=== PATIENT | female | born 1980 | race Caucasian/White ===

== ENCOUNTER 2017-05-16 09:48 | Emergency (ER) | payer MEDICAID ==
[2017-05-16] MEDS ORDERED: Sodium Chloride 0.9% 1,000 ML IV ONE (10:20)
--- NOTE | 2017-05-16 10:24 | C.PDOC ---
History Of Present Illness 37F c/o urinary frequency/hesitancy and right low back pain for the last 3 weeks. also notes productive cough. fever for 2 days tues-wed this week but none since. smokes marijuana. takes xanax/prozac denies other pmh. Time Seen by Provider: 05/16/17 09:57 Chief Complaint (Nursing): Female Genitourinary Past Medical History Vital Signs: Last Vital Signs Temp 98.5 F 05/16/17 10:03 Pulse 98 H 05/16/17 10:03 Resp 18 05/16/17 10:03 BP 115/78 05/16/17 10:03 Pulse Ox 99 05/16/17 11:51 - Medical History PMH: Anxiety, Depression, Hypercholesterolemia (diet/exercise controlled) Family History: States: Other Other Family History: [place] - Social History Hx Alcohol Use: No Hx Substance Use: No - Immunization History Hx Tetanus Toxoid Vaccination: No Hx Influenza Vaccination: No Hx Pneumococcal Vaccination: No Review Of Systems Constitutional: Positive for: Fever, Chills, Malaise Cardiovascular: Negative for: Chest Pain Respiratory: Positive for: Cough. Negative for: Shortness of Breath Gastrointestinal: Positive for: Abdominal Pain. Negative for: Nausea, Vomiting Genitourinary: Positive for: Frequency. Negative for: Dysuria Physical Exam - Physical Exam Appears: Well, Non-toxic, No Acute Distress Skin: Warm, Dry Eye(s): bilateral: PERRL Oral Mucosa: Moist Tongue: No Swelling Lips: No Swelling Neck: Supple Cardiovascular: Rhythm Regular Respiratory: No Decreased Breath Sounds, No Accessory Muscle Use, No Rales, No Rhonchi, No Stridor, No Wheezing Gastrointestinal/Abdominal: Soft, No Distention, No Guarding, No Rebound Neurological/Psych: Oriented x3 ED Course And Treatment - Laboratory Results Result Diagrams: 05/16/17 10:33 05/16/17 10:33 O2 Sat by Pulse Oximetry: 99 Medical Decision Making Medical Decision Makinam disc results w pt who is resting quietly in no distress, reports improvement in sx. she v/u and agrees w plan. PROCEDURE: CT scan abdomen and pelvis dated 05/16/2017. HISTORY: Flank pain. Rule out ureteral stone COMPARISON: None. TECHNIQUE: Contiguous axial images of the abdomen and pelvis. Oral contrast was administered. No IV contrast given. Coronal and Sagittal reformats generated. Radiation dose: Total exam DLP = 274.94 mGy-cm. This CT exam was performed using one or more of the following dose reduction techniques: Automated exposure control, adjustment of the mA and/or kV according to patient size, and/or use of iterative reconstruction technique. FINDINGS: LOWER THORAX: Lung bases clear. No infiltrate effusion or basilar pneumothorax. Heart size within range of normal. No significant pericardial effusion. LIVER: Liver appears mildly enlarged measuring just over 18 cm in CC dimension. No obvious hepatic mass collection or calcification seen on this noncontrast exam. GALLBLADDER AND BILE DUCTS: Gallbladder is physiologically distended. No evidence of intraluminal gallbladder calculi. PANCREAS: Pancreas is of not well delineated due to the lack of oral and intravenous contrast material as well as a paucity of intraperitoneal and retroperitoneal fat. No gross pancreatic mass seen. SPLEEN: Spleen exhibits normal size. No evidence of large splenic mass collection or calcification. ADRENALS: No adrenal lesions. KIDNEYS AND URETERS: The kidneys exhibit relatively symmetric size. There is mild right-sided hydronephrosis. The mid and distal ureter is poorly delineated again due to the aforementioned limitations. There are 2 tiny calcifications seen in the right aspect of the pelvis are neither of which is felt to be located within the distal ureter. Collective findings may represent a recently passed renal calculus. Clinical correlation with urinalysis. BLADDER: Urinary bladder is incompletely distended which may account for slight thick- walled appearance. Possibility of a cystitis must also be considered. REPRODUCTIVE: Prominent appearing right ovary. APPENDIX: Normal-appearing appendix of best seen on coronal image number [id number]. BOWEL: Evaluation of the bowel is limited due to the lack of oral contrast material. Stomach is distended with large amount of liquid and small amount of air. Visualized loops small bowel exhibit normal contour and caliber. No evidence of acute mechanical small bowel obstruction. Stool and air seen throughout the large bowel. No definitive evidence of abnormal mural wall thickening. PERITONEUM: Unremarkable. No fluid collection. No free air. LYMPH NODES: No significant abdominal adenopathy VASCULATURE: Unremarkable. No aortic aneurysm. BONES: Moderate levoscoliosis centered at the at L3-L4 level. No acute compression fractures no retropulsed fragments. OTHER FINDINGS: None. IMPRESSION: There is mild proximal right-sided hydronephrosis of. No definitive evidence of a renal or ureteral calculi at despite 2 small calcifications within the right pelvis that are not felt to be located within the distal right ureter. Rule out recently passed calculus. Mild wall thickening of the urinary bladder likely in part due to incomplete distention however correlation with urinalysis is suggested to exclude possibility of a cystitis. Mild hepatomegaly. Moderate levoscoliosis as above. Disposition - Disposition Referrals: [facility] [Outside] Disposition: HOME/ ROUTINE Disposition Time: 11:50 Condition: IMPROVED Additional Instructions: Please follow up with your doctor in 1 week. Return to the ER for any worsening symptoms or if you have not improved in 3 days. Prescriptions: Cephalexin [cephalexin] 500 mg PO BID #20 cap Instructions: Urinary Tract Infection in Women (ED) Forms: [facility] ([place]), General Discharge Instructions - Clinical Impression Clinical Impression: UTI (urinary tract infection)
[2017-05-16] MEDS ORDERED: Sodium Chloride 0.9% 1,000 ML ONE (10:31)
[2017-05-16 10:35] VITALS: RESP 18; TEMP 98.5; O2SAT 99
[2017-05-16 10:49] LABS: ALKALINE PHOSPHATASE 72 U/L (38-126); ALT/SGPT 35 U/L (9-52); AST/SGOT 24 U/L (14-36); BILIRUBIN,TOTAL 0.8 mg/dL (0.2-1.3); BLOOD UREA NITROGEN 12 mg/dL (7-17); CALCIUM 8.8 mg/dl (8.6-10.4); CARBON DIOXIDE 28 mmol/L (22-30); CHLORIDE 97 mmol/L (98-107); GFR AFRICAN-AMERICAN > 60; GLUCOSE,RANDOM 125 mg/dL (65-105); POTASSIUM 3.9 mmol/L (3.6-5.2); RBC URINE 85 /hpf (0-3); SODIUM 136 mmol/L (132-148); TOTAL PROTEIN 8.7 g/dL (6.3-8.3); URINE BACTERIA RARE (<OCC); URINE BILIRUBIN NEGATIVE (NEGATIVE); URINE BLOOD 2+ (NEGATIVE); URINE COLOR Yellow (YELLOW); URINE GLUCOSE (UA) NORMAL (Normal); URINE KETONE NEGATIVE (NEGATIVE); URINE LEUKOCYTE ESTERASE 1+ Leu/uL (Negative); URINE PROTEIN 2+ mg/dL (NEGATIVE); URINE UROBILINOGEN NORMAL mg/dL (0.2-1.0); WBC URINE 60 /hpf (0-5)
[2017-05-16 10:50] LABS: ALB/GLOB RATIO 1.1 (1.0-2.1)
[2017-05-16 10:53] LABS: BASO # 0.1 K/uL (0.0-0.2); BASO % 1.7 % (0.0-2.0); EOS # 0.1 K/uL (0.0-0.7); EOS % 0.6 % (0.0-4.0); HEMATOCRIT 40.7 % (34.0-47.0); LYMPH # 1.7 K/uL (1.0-4.3); LYMPH % 21.1 % (20.0-40.0); MEAN CELL VOLUME 97.7 fL (81.0-99.0); MEAN CORPUSCULAR HEMOGLOBIN 32.3 pg (27.0-31.0); MEAN CORPUSCULAR HGB CONC 33.1 g/dL (33.0-37.0); MEAN PLATELET VOLUME 8.4 fL (7.2-11.7); MONO # 0.8 K/uL (0.0-0.8); MONO % 10.5 % (0.0-10.0); RED CELL DISTRIBUTION WIDTH 12.4 % (11.5-14.5); WHITE BLOOD COUNT 7.9 K/uL (4.8-10.8)
[2017-05-16] MEDS ORDERED: cefTRIAXone IV 1 gm in Dextros 50 ML IVPB ONE (11:08)
--- NOTE | 2017-05-16 11:42 | CT ---
PROCEDURE: CT scan abdomen and pelvis dated 05/16/2017. HISTORY: Flank pain. Rule out ureteral stone COMPARISON: None. TECHNIQUE: Contiguous axial images of the abdomen and pelvis. Oral contrast was administered. No IV contrast given. Coronal and Sagittal reformats generated. Radiation dose: Total exam DLP = 274.94 mGy-cm. This CT exam was performed using one or more of the following dose reduction techniques: Automated exposure control, adjustment of the mA and/or kV according to patient size, and/or use of iterative reconstruction technique. FINDINGS: LOWER THORAX: Lung bases clear. No infiltrate effusion or basilar pneumothorax. Heart size within range of normal. No significant pericardial effusion. LIVER: Liver appears mildly enlarged measuring just over 18 cm in CC dimension. No obvious hepatic mass collection or calcification seen on this noncontrast exam. GALLBLADDER AND BILE DUCTS: Gallbladder is physiologically distended. No evidence of intraluminal gallbladder calculi. PANCREAS: Pancreas is of not well delineated due to the lack of oral and intravenous contrast material as well as a paucity of intraperitoneal and retroperitoneal fat. No gross pancreatic mass seen. SPLEEN: Spleen exhibits normal size. No evidence of large splenic mass collection or calcification. ADRENALS: No adrenal lesions. KIDNEYS AND URETERS: The kidneys exhibit relatively symmetric size. There is mild right-sided hydronephrosis. The mid and distal ureter is poorly delineated again due to the aforementioned limitations. There are 2 tiny calcifications seen in the right aspect of the pelvis are neither of which is felt to be located within the distal ureter. Collective findings may represent a recently passed renal calculus. Clinical correlation with urinalysis. BLADDER: Urinary bladder is incompletely distended which may account for slight thick-walled appearance. Possibility of a cystitis must also be considered. REPRODUCTIVE: Prominent appearing right ovary. APPENDIX: Normal-appearing appendix of best seen on coronal image number [id number]. BOWEL: Evaluation of the bowel is limited due to the lack of oral contrast material. Stomach is distended with large amount of liquid and small amount of air. Visualized loops small bowel exhibit normal contour and caliber. No evidence of acute mechanical small bowel obstruction. Stool and air seen throughout the large bowel. No definitive evidence of abnormal mural wall thickening. PERITONEUM: Unremarkable. No fluid collection. No free air. LYMPH NODES: No significant abdominal adenopathy VASCULATURE: Unremarkable. No aortic aneurysm. BONES: Moderate levoscoliosis centered at the at L3-L4 level. No acute compression fractures no retropulsed fragments. OTHER FINDINGS: None. IMPRESSION: There is mild proximal right-sided hydronephrosis of. No definitive evidence of a renal or ureteral calculi at despite 2 small calcifications within the right pelvis that are not felt to be located within the distal right ureter. Rule out recently passed calculus. Mild wall thickening of the urinary bladder likely in part due to incomplete distention however correlation with urinalysis is suggested to exclude possibility of a cystitis. Mild hepatomegaly. Moderate levoscoliosis as above.
--- NOTE | 2017-05-16 12:01 | RAD ---
HISTORY: cough COMPARISON: No prior. TECHNIQUE: Chest PA and lateral FINDINGS: LUNGS: No acute consolidation. There appears to be a mild localized cortical irregularity of the anterolateral margin left 2nd rib ; rule out old old healed fracture deformity. Follow-up apical lordotic view of the chest could be performed to exclude parenchymal nodule PLEURA: No significant pleural effusion identified. No pneumothorax apparent. CARDIOVASCULAR: Normal. OSSEOUS STRUCTURES: Mild moderate dextroscoliosis lower thoracic spine with levoscoliosis of the lumbar spine. VISUALIZED UPPER ABDOMEN: Normal. OTHER FINDINGS: None. IMPRESSION: No acute consolidation. There appears to be a mild localized cortical irregularity of the anterolateral margin left 2nd rib ; rule out old old healed fracture deformity. Follow-up apical lordotic view of the chest could be performed to exclude parenchymal nodule
[2017-05-16 12:03] VITALS: BP 99/61; PULSE 64
== END 2017-05-16 12:03 | disposition home or self-care (01) ==
LOC: C.ER 09:48
DX: N39.0 Urinary tract infection, site not specified (principal); E78.00 Pure hypercholesterolemia, unspecified
CPT/HCPCS: 71020; 74176; 80053; 81001; 84703; 85025; 87086; 87804; 96361; 96365; 96375; 99285; J0696; J1885; J7040